=== PATIENT | male | born 1980 | race African-American/Black ===

== ENCOUNTER 2021-02-10 11:53 | Emergency (ER) | payer BC ==
[~2021-02-10] VITALS: Ht 180.3 cm; Wt 133.8 kg
[2021-02-10] MEDS ORDERED: NORVASC10 MG PO (12:12)
[2021-02-10] MEDS ORDERED: METFORMIN HCL500 M3 PO (12:13)
[2021-02-10] MEDS ORDERED: AVAPRO300 MG PO (12:13)
[2021-02-10] MEDS ORDERED: METFORMIN HCL500 MG PO (12:13)
[2021-02-10] MEDS ORDERED: ZYRTEC10 M2 PO ×2 (13:07→13:10)
[2021-02-10] MEDS ORDERED: FLONASE 0.05%50 MCG NARES (13:07)
[2021-02-10 13:16] VITALS: BP 150/101
--- NOTE | 2021-02-12 09:26 | EKG ---
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
== END 2021-02-10 13:17 | disposition home or self-care (01) ==
LOC: ER 11:53
DX: R51.9 Headache, unspecified (principal); I10 Essential (primary) hypertension; R09.81 Nasal congestion; Z79.899 Other long term (current) drug therapy